=== PATIENT | male | born 1985 | race Caucasian/White ===

== ENCOUNTER 2019-05-21 15:48 | Inpatient (IN) ==
[2019-05-21] MEDS ORDERED: NARCAN IV ONE (15:58)
[2019-05-21 16:19] LABS: BASO# 0.03 X1000 (0.0-0.2); BASO% 0.2 % (0.0-0.8); EOS% 1.6 % (0.0-10.0); HEMATOCRIT 44.3 % (42.0-52.0); HEMOGLOBIN 14.3 g/dL (14.0-18.0); IMM GRAN# 0.09 X1000 (0.0-0.04); IMM GRAN% 0.7 % (0.0-0.5); LYMPH# 4.25 X1000 (1.2-3.4); LYMPH% 33.6 % (20.5-51.1); MCH 30.4 PG (27-31); MCHC 32.3 g/dL (33-37); MCV 94.1 FL (81-99); MONO# 0.82 X1000 (0.11-0.59); MONO% 6.5 % (1.7-9.3); MPV 9.6 FL (7.4-10.4); NEUT# 7.27 X1000 (1.4-6.5); NEUT% 57.4 % (42.2-75.2); PLT 322 X1000 (130-400); RBC 4.71 XMIL (4.7-6.1); RDW 14.6 % (11.5-14.5); WBC 12.66 X1000 (4.8-10.8)
[2019-05-21] MEDS ORDERED: NARCAN ONE (16:29)
[2019-05-21 16:34] LABS: UR AMPHETAMINES QUAL NONE DETECTED (NONE DETECT); UR BARBITUATES QUAL NONE DETECTED (NONE DETECT); UR BENZODIAZEPIN QUAL NONE DETECTED (NONE DETECT); UR CANNABINOIDS QUAL NONE DETECTED (NONE DETECT); UR COCAINE QUAL NONE DETECTED (NONE DETECT); UR METHADONE QUAL NONE DETECTED (NONE DETECT); UR METHAMPHETAMINE QUAL NONE DETECTED (NONE DETECT); UR OPIATES QUAL PRESUMPTIVE POSITIVE (NONE DETECT); UR OXYCODONE QUAL NONE DETECTED (NONE DETECT); UR PCP QUAL NONE DETECTED (NONE DETECT); UR PROPOXYPHENE QUAL NONE DETECTED (NONE DETECT); UR TCA QUAL NONE DETECTED (NONE DETECT)
[2019-05-21 16:37] LABS: ACETAMINOPHEN < 1.2 ug/mL (10-30); AGAP 21; ALBUMIN 5.2 g/dL (3.5-5.0); ALKALINE PHOSPHATASE 124 U/L (32-122); BUN 10 mg/dL (8-22); CALCIUM 8.5 mg/dL (8.8-10.2); CHLORIDE 97 mmol/L (98-107); COSMO 280; CREATININE 0.8 mg/dL (0.7-1.2); ESTIMATED GFR > 60; GLUCOSE 185 mg/dL (70-104); GOT 184 U/L (10-34); GPT 70 U/L (10-44); POTASSIUM 4.3 mmol/L (3.5-5.1); SALICYLATES < 3.00 mg/dL (3-10); SODIUM 138 mmol/L (136-145); TCO2 20 mmol/L (25-35); TOTAL PROTEIN 8.7 g/dL (6.3-8.3)
--- NOTE | 2019-05-21 17:06 | PROVIDER DOCUMENTATION ---
This chart was entered by Abiola Chavarria Scribe, acting as scribe for Colin Lemos MD. [id number] Abuse/Overdose - General Chief Complaint: Unresponsive Stated Complaint: UNRESPONSIVE Time Seen by Provider: 05/21/19 17:04 Source: patient Unable to obtain history due to:: altered Allergies/Adverse Reactions: Allergies Allergy/AdvReac Type Severity Reaction Status Date / Time No Known Allergies Allergy Verified 05/21/19 16:37 Home Medications: Home Medication List Medication Instructions Recorded Confirmed Last Taken Type NK [No Home Medications] 05/21/19 05/21/19 Unknown History - History of Present Illness-Drug/Alcohol Nature of Presenting Problem: Pt is a 34 yowm brought to the ED by a woman who he asked for a ride at [employer]. Pt became unresponsive while in her car and she brought him to the ED. Pt was unresponsive upon entering ED, pupils were pinpricks per RN, and vitals were decreased and pale in appearance. This episode of drinking or use began:: unsure Severity: reports: severe Psychiatric Complaints: reports: suicidal ideation Associated Symptoms: reports: nausea, weakness Any injuries associated with this episode of intoxication?: No Similar Symptoms Previously?: Yes (pt states he is an alcoholic) - Substance Abuse Substance Use: reports: alcohol, opiates - Alcohol Abuse Usually drinks:: chronically - Overdose List substance(s) ingested.: heroine Review of Systems - Adult - REVIEW OF SYSTEMS - ADULT ROS:: limited per condition Constitutional: reports: no symptoms reported Past History - Adult - PAST MEDICAL HISTORY-ADULT Review of Records: reports: Old Records Reviewed, Nursing Assessment Review, M edications Reviewed, Social history reviewed & non-contributory. Major Childhood Illnesses: reports: denies history Cardiovascular: reports: denies history Respiratory: reports: denies history Gastrointestinal: reports: denies history Obstetrical/Gynecological: reports: denies history Genitourinary: reports: denies history Musculoskeletal: reports: denies history Neurological: reports: denies history Endocrine/Immune: reports: denies history Other Conditions: reports: denies history - IMMUNIZATION STATUS Childhood Immunizations: See Nurse Assessment Flu Vaccine: See Nurse Assessment - FAMILY HISTORY Family History: reviewed, not pertinent - SOCIAL HISTORY Smoking: greater than 1 pack/day Provider spent 3-5 mins advising pt. on dangers of tobacco.: Discussed manners to quit use, and f/u contacts for add'l counseling. Substance Use: alcohol, opiates Alcohol Use Frequency: every day Physical Exam-General - PHYSICAL EXAM-ADULT Initial Vital Signs Reviewed: Yes (HR 128, Resp 4 L, O2 80 RA ) - CONSTITUTIONAL General Appearance: severe distress, anxious, slow to respond, combative - EYES Eyes: other (pinpoint pupils) - HEAD, EARS, NOSE, MOUTH & THROAT HENMT: normal ENT inspection - RESPIRATORY Respiratory: chest non-tender, lungs clear, decreased breath sounds, decreased r ate - CARDIOVASCULAR Cardiovascular: tachycardia - GASTROINTESTINAL (ABDOMEN) Abdominal Exam: normal bowel sounds, non tender, soft - MUSCULOSKELETAL Back Exam: normal inspection, no CVA tenderness, no vertebral tenderness Extremity: non-tender - SKIN Integumentary: pallor - PSYCHIATRIC Psych/Mental Status: disoriented x 3, anxious, disheveled, depressed affect, tearful Progress - PLAN OF CARE/RESULTS Progress/Plan/Lab Results: Vital Signs - 8 hr 05/21/19 15:52 05/21/19 15:53 05/21/19 16:00 Temperature Pulse Rate 128 H 106 H Respiratory Rate 6 L 20 Blood Pressure 146/89 140/82 O2 Sat by Pulse Oximetry 80 L 96 98 05/21/19 16:01 05/21/19 16:20 Temperature 97.6 F Pulse Rate 133 H 121 H Respiratory Rate 20 20 Blood Pressure 122/100 150/93 O2 Sat by Pulse Oximetry 100 99 Laboratory Results - last 24 hr 05/21/19 05/21/19 05/21/19 16:00 16:00 16:00 WBC 12.66 H RBC 4.71 Hgb 14.3 Hct 44.3 MCV 94.1 MCH 30.4 MCHC 32.3 L RDW Std Deviation 14.6 H Plt Count 322 MPV 9.6 Immature Gran % (Auto) 0.7 H Neut % (Auto) 57.4 Lymph % (Auto) 33.6 [place] % (Auto) 6.5 Eos % (Auto) 1.6 Baso % (Auto) 0.2 Immature Gran # (Auto) 0.09 H Neut # (Auto) 7.27 H Lymph # (Auto) 4.25 H [place] # (Auto) 0.82 H Eos # (Auto) 0.20 Baso # (Auto) 0.03 Sodium 138 Potassium 4.3 Chloride 97 L Carbon Dioxide 20 L Anion Gap 21 BUN 10 Creatinine 0.8 Estimated GFR/1.73 m2 > 60 BUN/Creatinine Ratio 13 Glucose 185 H Calculated Osmolality 280 Calcium 8.5 L Total Bilirubin 0.90 AST 184 H ALT 70 H Alkaline Phosphatase 124 H Total Protein 8.7 H Albumin 5.2 H Globulin 4.0 Albumin/Globulin Ratio 1.0 Salicylates < 3.00 L Urine Opiates Screen PRESUMPTIVE POSITIVE A Ur Oxycodone Screen NONE DETECTED Urine Methadone Screen NONE DETECTED U Propoxyphene Qual NONE DETECTED Acetaminophen < 1.2 L Ur Barbituates Screen NONE DETECTED Ur Tricyclics Screen NONE DETECTED Ur Phencyclidine Scrn NONE DETECTED Ur Amphetamines Screen NONE DETECTED U Methamphetamines Scrn NONE DETECTED U Benzodiazepines Scrn NONE DETECTED Urine Cocaine Screen NONE DETECTED U Cannabinoids Screen NONE DETECTED Plasma/Serum Ethyl Alc 05/21/19 16:00 WBC RBC Hgb Hct MCV MCH MCHC RDW Std Deviation Plt Count MPV Immature Gran % (Auto) Neut % (Auto) Lymph % (Auto) [place] % (Auto) Eos % (Auto) Baso % (Auto) Immature Gran # (Auto) Neut # (Auto) Lymph # (Auto) [place] # (Auto) Eos # (Auto) Baso # (Auto) Sodium Potassium Chloride Carbon Dioxide Anion Gap BUN Creatinine Estimated GFR/1.73 m2 BUN/Creatinine Ratio Glucose Calculated Osmolality Calcium Total Bilirubin AST ALT Alkaline Phosphatase Total Protein Albumin Globulin Albumin/Globulin Ratio Salicylates Urine Opiates Screen Ur Oxycodone Screen Urine Methadone Screen U Propoxyphene Qual Acetaminophen Ur Barbituates Screen Ur Tricyclics Screen Ur Phencyclidine Scrn Ur Amphetamines Screen U Methamphetamines Scrn U Benzodiazepines Scrn Urine Cocaine Screen U Cannabinoids Screen Plasma/Serum Ethyl Alc 292 H Orders Category Date Time Status Kraft Cath Insertion ORDERED Care 05/21/19 16:17 Active Initiate Psych Med Clear.Olivia DIRECTED Care 05/21/19 16:36 Active Psy Observation/Precaution .1:1 Observation Care 05/21/19 16:36 Active Psy Observation/Precaution .Assault/Homicidal Care 05/21/19 16:36 Active Psy Observation/Precaution .Hourly Observation Care 05/21/19 16:36 Active Psy Observation/Precaution .Q15 Minute Observation Care 05/21/19 16:36 Active Saline Loc NOW Care 05/21/19 15:58 Active ALCOHOL BLOOD Stat Lab 05/21/19 16:00 Completed CBC WITH DIFF [HEME] Stat Lab 05/21/19 16:00 Completed COMPREHENSIVE METABOLIC PANEL [CHEM] Stat Lab 05/21/19 16:00 Completed SALICYLATES [TDM] Stat Lab 05/21/19 16:00 Completed Tylenol [ACETAMINOPHEN] [TDM] Stat Lab 05/21/19 16:00 Com[address] DRUG SCREEN PL Stat Lab 05/21/19 16:00 Completed Naloxone [Narcan] Med 05/21/19 16:29 Discontinued 2 mg .ROUTE .STK-MED ONE Naloxone [Narcan] Med 05/21/19 15:58 Discontinued 2 mg IV NOW ONE EKG [EKG] Stat Ther 05/21/19 15:56 Ordered Result Diagrams: 05/21/19 16:00 05/21/19 16:00 - EKG 1 Time of EKG reading by physician:: 16:05 EKG Read and Signed by:: Colin Lemos EKG Interpretation (*Must complete 3 of following elements*): Abnormal Rate: 145 Rhythm: Sinus tachycardia - CONSULTS/PCP/HOSPITALIST Notification #1 *Consult/PCP/Hospitalist*: Dr Head Time Discussed: 16:59 Reason/Comments: discussing POC and possible admission Departure - Departure Date of Disposition Decision: 05/21/19 Time of Disposition Decision: 17:03 DIAGNOSIS: Heroin overdose, Alcoholism /alcohol abuse, Suicidal ideation Disposition: ADMITTED INPATIENT 09 Certified Medical Emergency: Emergent Condition: Stable Referrals and Follow-Ups: None,PCP [Primary Care Provider] - - Critical Care Note This patient required my direct & personal management of CC.: Yes Total Time (mins): 45 Critical Care Statement: This patient required my direct personal management to treat or rule out processes, the absence of which, could potentiallly result in sudden, clinically significant life or limb threatening deterioration. Attestation - Physician/ MARGARITA Attestation Patient care was provided by Advanced Practice Provider:: No The physician spent face to face time with patient:: Yes Advanced Practice Provider documentation review:: Supervising physician onsite and consulted in the evaluation and care of this patient. The physician did have a face to face encounter with the patient. This chart was documented by the indicated scribe, (Chavarria,Abiola L., Scribe) and accurately reflects the services I performed and decisions made by me, Colin Lemos MD, as attested by the provider's signature.
[2019-05-21] MEDS ORDERED: NS 1,000 ML IV ONE (17:11)
[2019-05-21] MEDS ORDERED: PHENOBARBITAL IV PRN (17:41)
[2019-05-21] MEDS ORDERED: BENTYL PO PRN (17:41)
[2019-05-21] MEDS ORDERED: MOTRIN PO PRN (17:41)
[2019-05-21] MEDS ORDERED: ZOFRAN ODT PO PRN (17:41)
[2019-05-21] MEDS ORDERED: DULCOLAX PR PRN (17:41)
[2019-05-21] MEDS ORDERED: MAALOX PLUS LIQUID PO PRN (17:41)
[2019-05-21] MEDS ORDERED: D5W 1,000 ML IV PRN (17:41)
[2019-05-21] MEDS ORDERED: NICODERM PATCH TD PRN (17:41)
[2019-05-21] MEDS ORDERED: M.V.I.-12 10 ML, FOLIC ACID 1 MG, MAGNESIUM SULFATE 1 GM, THIAMINE 100 MG in NS 1,000 ML IV ONE (17:41)
[2019-05-21] MEDS ORDERED: SENOKOT PO PRN (17:41)
[2019-05-21] MEDS ORDERED: ZOFRAN IV PRN (17:41)
[2019-05-21] MEDS ORDERED: IMODIUM PO PRN (17:41)
[2019-05-21] MEDS ORDERED: ATIVAN IV ONE (17:43)
--- NOTE | 2019-05-21 18:25 | EKG Report ---
Test Performed on : 05/21/2019 4:01:12 PM Test Reason : OD Blood Pressure : / mmHG Vent. Rate : 145 BPM Atrial Rate : 129 BPM P-R Int : 000 ms QRS Dur : 080 ms QT Int : 350 ms P-R-T Axes : 000 -14 -21 degrees QTc Int : 543 ms Supraventricular tachycardia. with premature supraventricular complexes. and with occasional prematur e ventricular complexes. Septal infarct , age undetermined Inferior infarct , age undetermined Abnormal ECG No previous ECGs available Unconfirmed Result
[2019-05-21] MEDS: LIBRIUM PO SCH (18:36)
[2019-05-21] MEDS: ATARAX PO PRN (22:37)
[2019-05-22] MEDS: LIBRIUM PO SCH ×4 (00:36→18:32)
[2019-05-22] MEDS: TYLENOL PO PRN ×3 (01:17→21:57)
[2019-05-22 06:39] LABS: HEMATOCRIT 42.1 % (42.0-52.0); HEMOGLOBIN 13.4 g/dL (14.0-18.0); MCHC 31.8 g/dL (33-37); MCV 94.4 FL (81-99); MPV 9.3 FL (7.4-10.4); RBC 4.46 XMIL (4.7-6.1); RDW 14.5 % (11.5-14.5); WBC 9.02 X1000 (4.8-10.8)
[2019-05-22 06:53] LABS: AGAP 12; ALBUMIN 4.4 g/dL (3.5-5.0); ALKALINE PHOSPHATASE 106 U/L (32-122); AMYLASE 99 U/L (20-200); BUN 12 mg/dL (8-22); CALCIUM 8.9 mg/dL (8.8-10.2); CHLORIDE 99 mmol/L (98-107); COSMO 273; CREATININE 0.6 mg/dL (0.7-1.2); ESTIMATED GFR > 60; GLUCOSE 90 mg/dL (70-104); GOT 66 U/L (10-34); GPT 49 U/L (10-44); LIPASE 11 U/L (13-60); POTASSIUM 4.7 mmol/L (3.5-5.1); SODIUM 137 mmol/L (136-145); TCO2 26 mmol/L (25-35); TOTAL PROTEIN 7.5 g/dL (6.3-8.3)
[2019-05-22] MEDS: PROTONIX PO SCH (06:56)
[2019-05-22] MEDS: THERA M PLUS PO SCH (08:52)
[2019-05-22] MEDS: VITAMIN B-1 PO SCH (08:53)
[2019-05-22] MEDS: FOLIC ACID PO SCH (08:53)
[2019-05-22] MEDS: ATARAX PO PRN ×2 (14:07→21:47)
--- NOTE | 2019-05-22 18:23 | PROGRESS NOTE ---
DATE: 05/22/2019 SUBJECTIVE: Patient is much better this morning. He is feeling a lot better. He is tearful and upset over the events of yesterday. Denies any fevers, chills. Denies cough, congestion. PHYSICAL EXAMINATION: Vital Signs: Reviewed. He is awake, alert. He is pleasant. He is in the ER stretcher without any respiratory distress. HEENT: Normocephalic. Neck: Supple. Cardiovascular: Regular rate. Chest: Clear. Abdomen: Soft. Extremities: Moves all extremities. ASSESSMENT: 1. Nausea, vomiting. 2. Abdominal pain. 3. Supraventricular tachycardia resolved. 4. Alcohol abuse withdrawal and stabilization. 5. Opiate abuse withdrawal and stabilization. 6. Chronic tobacco abuse. 7. Suicide ideations. PLAN: We will continue patient in the hospital, hopefully transition him to the floor if we can have a sitter and we will follow. Discussed with patient the importance of stopping drinking. cc: Bertrand Peralta MD
--- NOTE | 2019-05-22 19:51 | HISTORY AND PHYSICAL ---
CHIEF COMPLAINT: Unresponsive. HISTORY OF PRESENT ILLNESS: Patient is a 34-year-old male who was seen by myself in the ER. He currently is starting to wake up a little bit more. He is still confused. He is short of breath. Apparently, he asked someone at [employer] to give him a ride. While in her car, he apparently became unresponsive. She brought him to the emergency department. His pupils were pinpricks as noted by the staff. Currently, he is waking up a little bit better. ALLERGIES: No known drug allergies. MEDICATIONS: No current medications. REVIEW OF SYSTEMS: Unobtainable given his confusion, although he denies hurting anywhere. Denies any fevers. Denies any GI or issues. PAST MEDICAL HISTORY: Positive for alcoholism as well as depression. FAMILY HISTORY: Noncontributory. SOCIAL HISTORY: He apparently does smoke. He drinks and uses opiates daily. PHYSICAL EXAMINATION: VITAL SIGNS: Reviewed. Pulse is 128, respiratory was 4 initially, currently is 20, BP is 140/82, and O2 saturation was 80 initially, currently 98% on 2 L. GENERAL: Patient is in mild distress, although he was in severe distress when he initially arrived to the ER. He is improved. HEENT: Normocephalic. NECK: Supple. CARDIOVASCULAR: Tachycardia. CHEST: Clear, nonlabored. No wheezing. EXTREMITIES: Moves all extremities. ABDOMEN: Soft, nondistended. EXTREMITIES: Moves all extremities. ASSESSMENT: 1. Heroin overdose. 2. Alcohol withdrawal. 3. Suicide ideations, secondary to his alcoholism. 4. Supraventricular tachycardia. 5. Leukocytosis. 6. Acute respiratory distress. 7. Chronic tobacco abuse. PLAN: 1. We are going to continue patient in the ICU. Continue to follow. 2. We will give him 1 mg of Ativan now to help with his withdrawals, and then hopefully transition him over to oral Librium if he is able to stay awake to take such. We will continue to follow. 3. We will keep him in the ER for now until his heart rate is improved. cc: Bertrand Peralta MD
[2019-05-23] MEDS: LIBRIUM PO SCH ×4 (00:37→18:48)
[2019-05-23] MEDS: PROTONIX PO SCH (06:04)
[2019-05-23] MEDS: THERA M PLUS PO SCH (10:21)
[2019-05-23] MEDS: VITAMIN B-1 PO SCH (10:21)
[2019-05-23] MEDS: FOLIC ACID PO SCH (10:21)
[2019-05-23] MEDS: TYLENOL PO PRN (10:21)
--- NOTE | 2019-05-23 11:20 | Diag Imaging Result Doc PS360 ---
EXAM: CHEST-2 VIEWS HISTORY: Cough TECHNIQUE: Two views COMPARISON: 06/23/2019 FINDINGS: The lungs are well expanded. The heart is not enlarged. The vessels are not distended. There are mild increased interstitial markings in the mid right lung. No pleural effusions. IMPRESSION: Small infiltrate in the mid right lung Electronically signed by Angel Baker 05/23/2019 11:17 AM
[2019-05-23] MEDS ORDERED: ZITHROMAX 500 MG/NS 500 MG/250 ML IVPB IV SCH (12:00)
[2019-05-23] MEDS: ROCEPHIN 1 GM in NS 50 ML IV SCH (12:12)
[2019-05-23] MEDS ORDERED: DUONEB (A & A) INH ONE (12:17)
[2019-05-23] MEDS ORDERED: DUONEB (A & A) ONE (12:29)
[2019-05-23 12:33] LABS: HEMATOCRIT 38.3 % (42.0-52.0); HEMOGLOBIN 12.6 g/dL (14.0-18.0)
[2019-05-23] MEDS: DUONEB (A & A) INH SCH ×3 (15:18→23:16)
[2019-05-23] MEDS: ATARAX PO PRN (16:26)
--- NOTE | 2019-05-23 18:41 | PROGRESS NOTE ---
DATE: 05/23/2019 SUBJECTIVE: The patient notes that he is feeling a lot better. Still having cough. States his muscle aches have improved. PHYSICAL EXAMINATION: Vital signs: Temperature 97, pulse 87, respiratory rate 18, blood pressure 113/70. General: The patient is awake, pleasant, he is in no distress. Sitting in the bed currently with the covers over his head. He does answer questions. HEENT: Normocephalic. Neck: Is supple. CV: Regular rate. Chest: Clear. Abdomen: Soft. Extremities: Moves all extremities. Neuro: No changes. ASSESSMENT: 1. Right lobar pneumonia. We are going to put him on antibiotics, Rocephin. 2. Heroin overdose. 3. Alcohol overdose. 4. Suicidal ideation. 5. Supraventricular tachycardia, stable. 6. Leukocytosis, stable. PLAN: We are going to continue the patient in the hospital. We are going to wean his Librium. Follow his labs. AST and ALT both have improved. Place him on antibiotics and we will follow. cc: Bertrand Peralta MD
[2019-05-23] MEDS: SEROQUEL PO PRN (20:10)
[2019-05-23] MEDS: DESYREL PO PRN (20:48)
[2019-05-23] MEDS: ROBAXIN PO PRN (20:48)
[2019-05-24] MEDS: ATARAX PO PRN ×3 (00:13→20:05)
[2019-05-24] MEDS: LIBRIUM PO SCH ×5 (00:13→17:05)
[2019-05-24] MEDS: DUONEB (A & A) INH SCH ×5 (02:55→20:25)
[2019-05-24] MEDS: PROTONIX PO SCH (06:11)
[2019-05-24] MEDS: VITAMIN B-1 PO SCH (09:41)
[2019-05-24] MEDS: ZITHROMAX PO SCH (09:41)
[2019-05-24] MEDS: FOLIC ACID PO SCH (09:41)
[2019-05-24] MEDS: LOPRESSOR PO SCH ×2 (09:41→20:05)
[2019-05-24] MEDS: THERA M PLUS PO SCH (09:41)
[2019-05-24] MEDS: VRAYLAR PO SCH (09:42)
[2019-05-24] MEDS: ROCEPHIN 1 GM in NS 50 ML IV SCH (12:47)
--- NOTE | 2019-05-24 19:03 | PROGRESS NOTE ---
DATE: 05/24/2019 SUBJECTIVE: Patient notes that he is feeling okay, although still feels terrible. He still feels sluggish and slow. OBJECTIVE: Vital signs: Temperature 97 degrees, pulse 99 to 130, respiratory rate 18, BP 138/80. General: Patient is awake, pleasant. He is in no current respiratory distress. HEENT: Normocephalic. Neck: Supple. Cardiovascular: Regular rate. Chest: Clear. Abdomen: Soft. Extremities: Moves all extremities. Neurologic: No changes. ASSESSMENT: 1. Recent heroin overdose. 2. Alcohol overdose and withdrawal. 3. Recent suicide ideations secondary to his alcoholism, although patient denies suicidal ideations currently. 4. Ventricular tachycardia. 5. Leukocytosis. 6. Chronic tobacco abuse. PLAN: We are going to continue Librium. I do feel as though the patient certainly may have bipolar disorder. We are going to place him on medications. We are going to ask [facility] for assistance. He has pneumonia. We will continue Rocephin and will follow. cc: Bertrand Peralta MD
[2019-05-24] MEDS: SEROQUEL PO PRN (20:05)
[2019-05-24] MEDS: ROBAXIN PO PRN (20:05)
[2019-05-25] MEDS: DUONEB (A & A) INH SCH ×7 (00:19→22:54)
[2019-05-25] MEDS: DESYREL PO PRN (01:13)
[2019-05-25] MEDS: PROTONIX PO SCH (08:43)
[2019-05-25] MEDS: ZITHROMAX PO SCH (08:43)
[2019-05-25] MEDS: VITAMIN B-1 PO SCH (08:43)
[2019-05-25] MEDS: VRAYLAR PO SCH (08:43)
[2019-05-25] MEDS: FOLIC ACID PO SCH (08:43)
[2019-05-25] MEDS: LIBRIUM PO SCH ×3 (08:43→21:39)
[2019-05-25] MEDS: THERA M PLUS PO SCH (08:43)
[2019-05-25] MEDS: LOPRESSOR PO SCH ×2 (08:44→21:30)
[2019-05-25] MEDS: OMNICEF PO SCH ×2 (08:44→21:31)
[2019-05-25] MEDS ORDERED: LIBRIUM PO SCH (09:00)
[2019-05-25] MEDS: ATARAX PO PRN ×2 (13:54→21:31)
--- NOTE | 2019-05-25 18:53 | PROGRESS NOTE ---
DATE: 05/25/2019 SUBJECTIVE: Patient states he is still anxious and nervous. States that he wants his Klonopin. He denies any fevers or chills. PHYSICAL EXAMINATION: Vital signs: Temperature 97.6, pulse 98, respiratory rate 18, BP 123/77. General: The patient is awake, pleasant. He is in no respiratory distress. He does repeat himself multiple times on exam. HEENT: Normocephalic. Neck: Supple. Cardiovascular: Regular rate. Chest: Clear. Abdomen: Soft. Extremities: Moves all extremities. Neurologic: No changes. ASSESSMENT: 1. Supraventricular tachycardia, appears improved. Pulse is 90s to 100 as opposed to 124s prior to the addition of metoprolol. 2. Heroin overdose. 3. Alcohol abuse withdrawal. 4. Suicidal ideations. 5. Leukocytosis. Resolved. 6. Pneumonia. Currently is on Rocephin. PLAN: We are going to recheck labs in the a.m. Recheck chest x-ray. Hopefully these will both be improved. Currently, the patient remains in the hospital as he has continued to state that he has some suicidal thoughts. Hopefully, this will resolve. cc: Bertrand Peralta MD
[2019-05-25] MEDS: ROBAXIN PO PRN (21:30)
[2019-05-25] MEDS: SEROQUEL PO PRN (21:31)
[2019-05-26] MEDS: DESYREL PO PRN (00:51)
[2019-05-26] MEDS: DUONEB (A & A) INH SCH ×2 (02:51→07:37)
[2019-05-26] MEDS: PROTONIX PO SCH ×2 (03:42→09:58)
[2019-05-26] MEDS: ATARAX PO PRN (03:42)
[2019-05-26 06:26] LABS: AGAP 13; ALBUMIN 3.8 g/dL (3.5-5.0); ALKALINE PHOSPHATASE 71 U/L (32-122); BUN 13 mg/dL (8-22); CALCIUM 8.6 mg/dL (8.8-10.2); CHLORIDE 105 mmol/L (98-107); COSMO 282; CREATININE 0.7 mg/dL (0.7-1.2); ESTIMATED GFR > 60; GLUCOSE 118 mg/dL (70-104); GOT 26 U/L (10-34); GPT 30 U/L (10-44); MAGNESIUM 1.8 mg/dL (1.5-2.7); POTASSIUM 3.6 mmol/L (3.5-5.1); SODIUM 141 mmol/L (136-145); TCO2 23 mmol/L (25-35); TOTAL PROTEIN 6.5 g/dL (6.3-8.3)
[2019-05-26 06:32] LABS: HEMATOCRIT 35.2 % (42.0-52.0); MCH 30.1 PG (27-31); MCHC 31.3 g/dL (33-37); MCV 96.2 FL (81-99); MPV 10.1 FL (7.4-10.4); RBC 3.66 XMIL (4.7-6.1); RDW 14.4 % (11.5-14.5); WBC 4.93 X1000 (4.8-10.8)
--- NOTE | 2019-05-26 07:35 | Diag Imaging Result Doc PS360 ---
EXAM: CHEST-2 VIEWS - 05/26/2019 HISTORY: hypoxia TECHNIQUE: Chest two views COMPARISON: 05/23/2019 FINDINGS: Heart size is normal. There has been mild decrease in infiltrate at the right midlung. There has been mild increase in infiltrate at the right base. There is mild perihilar subsegmental atelectasis on the left. There is no pleural effusion or pneumothorax identified. IMPRESSION: Mild decrease in infiltrate at right midlung. Mild increase in infiltrate at right base. Electronically signed by David Linn 05/26/2019 7:33 AM
[2019-05-26] MEDS ORDERED: KLONOPIN PO PRN (09:00)
[2019-05-26 09:16] VITALS: BP 133/76
[2019-05-26] MEDS: THERA M PLUS PO SCH (09:40)
[2019-05-26] MEDS: LOPRESSOR PO SCH (09:40)
[2019-05-26] MEDS: ZITHROMAX PO SCH (09:40)
[2019-05-26] MEDS: OMNICEF PO SCH (09:40)
[2019-05-26] MEDS: VITAMIN B-1 PO SCH (09:40)
[2019-05-26] MEDS: FOLIC ACID PO SCH (09:40)
[2019-05-26] MEDS: VRAYLAR PO SCH (09:40)
--- NOTE | 2019-05-26 20:23 | DISCHARGE SUMMARY ---
ADMISSION DATE: 05/21/2019 DISCHARGE DATE: 05/26/2019 PRIMARY CARE PHYSICIAN: None. ADMISSION DIAGNOSES: 1. Heroin overdose. 2. Alcohol withdrawal. 3. Suicidal ideation secondary to his alcoholism. 4. SVT. 5. Leukocytosis. 6. Acute respiratory distress. 7. Chronic tobacco abuse. DISCHARGE DIAGNOSES: 1. Supraventricular tachycardia, resolved. 2. Heroin overdose. 3. Alcohol abuse and withdrawal. 4. Suicidal ideations. 5. Leukocytosis, resolved. 6. A right mid lung pneumonia, improved, most likely aspiration. SUMMARY OF FINDINGS: This is a 34-year-old male who arrived to the ER after he had asked someone at [employer] to give him a ride and while in the car, became unresponsive. Person brought him to the emergency room. Pupils were pinprick noted by staff. He was beginning to wake up, placed on Ativan p.r.n. and oral Librium, was then found to have a right mid lung pneumonia, placed on IV antibiotics. We consulted [facility] as he improved but he did not meet their inpatient criteria due to his dual diagnosis. He has contracted for safety and states that he is no longer suicidal and that was secondary to him being drunk and high. He did sign the contract for safety so it is now felt that he can safely be discharged home. DISCHARGE MEDICATIONS: Will include cefdinir 300 mg p.o. b.i.d. #10 with no refills, Klonopin 1 mg p.o. t.i.d., metoprolol 12.5 mg p.o. b.i.d. #30 with no refills. FOLLOW-UP: He needs to obtain a primary care physician. We will give him the physician referral line to obtain a primary care. All discharge instructions were reviewed with the patient and he verbalized understanding. TIME SPENT: A 35 minute discharge. Dictated by BHAVNA Ceja for Bertrand Peralta MD cc: BHAVNA Ceja MD
--- NOTE | 2019-05-27 03:57 | DISCHARGE SUMMARY ---
ADMISSION DATE: 05/21/2019 DISCHARGE DATE: 05/26/2019 ADDENDUM: Patient seen and examined by myself. Full note dictated and discussed with nurse practitioner. Patient presented to the hospital with a heroin and alcohol overdose. He was suicidal initially, but he states that was secondary to the drug use. Currently, he denies any suicidal ideations or intentions. He certainly does need to follow up outpatient with Psychiatry. The patient did have pneumonia and will be discharged home on antibiotics. cc: Bertrand Peralta MD
== END 2019-05-26 10:32 | disposition home or self-care (01) | DRG 917 ==
LOC: EDBD → P.ED 15:48 → SUATTDRO 17:41 → MERGE 05-22 06:21 → P.EDIPHOLD 05-22 06:21
PROVIDERS: ADMIT Family Medicine; ATTEND Family Medicine